=== PATIENT | male | born 1995 | race Caucasian/White ===

== ENCOUNTER 2019-10-12 01:41 | Outpatient (CLI) | payer OTHER, SELFPAY ==
--- NOTE | 2019-10-12 13:32 | DI.RAD_ITS ---
EXAM: XR LUMBAR SPINE COMPLETE INDICATION: LOW BACK PAIN, M54.5. COMPARISON: No exams were available for comparison TECHNIQUE: 2D digital imaging was performed. FINDINGS: There are 5 lumbar type vertebral bodies. There is normal alignment of the lumbar spine. No spondyl olysis or spondylolisthesis is present. There are no acute fractures or subluxations. Disc heights and posterior elements are well maintained. Mild degenerative changes are seen at the L5-S1 facet bhavik ints. IMPRESSION: Mild degenerative changes in the lower lumbar spine.
== END 2019-10-12 02:01 ==
PROVIDERS: PCP Family Medicine; Visit Provider Specialist/Technologist Athletic Trainer
DX: M54.5 Low back pain (principal); M47.816 Spondylosis without myelopathy or radiculopathy, lumbar region
CPT/HCPCS: 72110